=== PATIENT | female | born 1945 | race Caucasian/White ===

== ENCOUNTER → 2016-11-22 | Outpatient (CLI) | payer MEDICARE, BC ==
[~2016-11-22] MED LIST: ADVAIR 500-501 EACH INH; ALBUTEROL17 GM INH; BAYER CHEWABLE81 MG PO; PRILOSEC PO; SPIRIVA18 MCG INH; ZOCOR PO
--- NOTE | ~2016-11-22 | BD1 ---
[facility] A Service of [facility] RADIOLOGY TEXT RESULTS PATIENT: HEIKE DONG JANUARY LOCATION: SRA : 41 UNIT #: [id number] AGE: [address]: Loki Garcia MD SEX: F ORDER DR: [id number] [place] [id number] MR#: [id number] Acc #: [id number] NAME: HEIKE DONG : 1945 SEX: F STUDY DATE/TIME: 11/22/2016 9:28 UNIT: SRAD ROOM: STUDY DESCRIPTION: Dexa Bone Dens 1+ Site Attending Physician: London Garcia M.D. Referring Physician: Malou gN M.D. Ordering Physician: Ottoniel Garcia Jr., M.D. Primary Care Physician: Malou Ng M.D. MEDICAL IMAGING REPORT This report is preliminary unless electronic signature is present. EXAM Bone density spine hip HISTORY Postmenopausal. Smoker 45 years. Not currently. TECHNIQUE Bone mineral density scanning performed upper 4 lumbar vertebral segments and both proximal femurs in [age]-year-old, 204-pound female. COMPARISON No comparisons FINDINGS L1-L4: Total bone mineral density 1.228 g/cm sq for a T-score 0.4 standard deviation above mean for a reference population normal young individuals and Z-score 1.2 standard deviations above mean for age-matched population. Left hip: Full bone mineral density 0.945 g/cm sq for a T-score 0.5 standard deviations below mean for a reference population normal young individuals and a Z-score 0.5 standard deviations above the mean for age-match population. Left femoral neck bone mineral density 0.982 g/cm sq for a T-score 0.4 standard deviations below mean for a reference population normal young individuals and a Z-score 0.9 standard deviations above the mean for age-match population. Right hip: Total bone mineral density 0.945 g/cm sq for a T-score of 0.5 standard deviations below mean for a reference population normal young individuals and a Z-score 0.5 standard deviations above the mean for age-match population. Right femoral neck: Bone mineral density 0.983 g per square centimeter for a T-score 0.4 standard deviations below mean for a reference population normal young individuals and a Z-score 0.9 standard STS. [facility] A Service of [facility] RADIOLOGY TEXT RESULTS PATIENT: HEIKE DONG [id number] UNIT #: [id number] AGE: [address]: Loki Garcia MD SEX: F ORDER DR: deviations above mean for age-match population. IMPRESSION Normal bone mineral density upper 4 lumbar vertebral segments and both proximal femurs. Please correlate with patient's clinical status. Continued surveillance is recommended. Dictated by... Trent Jackson M.D. THIS IS AN ELECTRONICALLY VERIFIED REPORT Trent Jackson M.D. at 11/24/2016 7:55 AM ALIZE/issa TD: 11/22/2016 11:57 JOB #: [id number] MEDICAL IMAGING REPORT
== END | disposition home or self-care (01) ==
LOC: SRAD 09:19
DX: Z13.820 Encounter for screening for osteoporosis (principal); Z78.0 Asymptomatic menopausal state
CPT/HCPCS: 77080